=== PATIENT | male | born 1960 | race African-American/Black ===

== ENCOUNTER 2016-09-04 08:02 | Emergency (ER) | payer OTHER ==
[2016-09-04 08:14] VITALS: BP 116/65; PULSE 78; TEMP 98; BMI 41.5
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
== END 2016-09-04 08:44 | disposition home or self-care (01) ==
LOC: JERFT 08:02
DX: J00 Acute nasopharyngitis [common cold] (principal); I10 Essential (primary) hypertension
CPT/HCPCS: 99281-25

== ENCOUNTER 2017-03-12 07:53 | Emergency (ER) | payer OTHER ==
[2017-03-12 08:00] VITALS: BP 115/80; PULSE 77; TEMP 97.6; BMI 42.3
[2017-03-12] MEDS ORDERED: KETOROLAC TROMETHAMINE 60 MG/2 ML VIAL IM ONE (08:23)
[2017-03-12] MEDS ORDERED: KETOROLAC TROMETHAMINE 60 MG/2 ML VIAL ONE (08:27)
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
== END 2017-03-12 10:04 | disposition home or self-care (01) ==
LOC: JERFT 07:53
PROC: 3E0233Z Introduction of Anti-inflammatory into Muscle, Percutaneous Approach (ICD-10-PCS; principal; 2017-03-12)
DX: S13.4XXA Sprain of ligaments of cervical spine, initial encounter (principal); V43.52XA Car driver injured in collision with other type car in traffic accident, initial encounter; Y92.414 Local residential or business street as the place of occurrence of the external cause; Y93.89 Activity, other specified; I10 Essential (primary) hypertension; E07.9 Disorder of thyroid, unspecified
CPT/HCPCS: 72050-TC; 99281-25

== ENCOUNTER 2017-09-23 07:51 | Day surgery (SDC) | payer OTHER ==
[2017-09-19 15:05] VITALS: BMI 42.4
[2017-09-23 08:28] LABS: EOS % 2.3 % (0-4.5); HEMOGLOBIN 14.8 GM/dL (11.7-16.9); LYMPH % 27.7 % (8-40); MCH 29.1 pg (25.7-33.7); MCHC 33.6 g/dl (32.0-35.9); MEAN CELL VOLUME 86.5 fl (80-96); MEAN PLT VOLUME 7.2 fl (7.5-11.1); MONO % 6.5 % (3.8-10.2); NEUT % 62.5 % (42.8-82.8); PLATELET COUNT 312 K/MM3 (134-434); RBC 5.08 M/mm3 (4.00-5.60); RDW 13.8 % (11.9-15.9); WHITE BLOOD COUNT 9.2 K/mm3 (4.0-10.0)
[2017-09-23 08:37] LABS: INR 1.12 (0.82-1.09); PROTHROMBIN TIME (PATIENT) 12.7 SEC (9.98-11.88)
[2017-09-23 09:08] VITALS: TEMP 98.2
[2017-09-23] MEDS ORDERED: ACETAMINOPHEN 325 MG TABLET (FP) ONE (12:27)
[2017-09-23 15:34] VITALS: BP 116/68; PULSE 73
== END 2017-09-23 15:40 | disposition home or self-care (01) ==
LOC: JRADIR 07:51
PROVIDERS: ATTEND Radiology Diagnostic Radiology
PROC: 00JU3ZZ Inspection of Spinal Canal, Percutaneous Approach (ICD-10-PCS; principal; 2017-09-23)
DX: M54.2 Cervicalgia (principal); R51 Headache
CPT/HCPCS: 36415; 72125-TC; 72240-TC-FY; 76000-TC-FY; 85025; 85610

== ENCOUNTER 2017-09-29 07:51 | Emergency (ER) | payer OTHER ==
[2017-09-29 08:05] VITALS: BMI 42.5
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
[2017-09-29] MEDS ORDERED: IBUPROFEN 400 MG TABLET (FP) PO ONE ×2 (09:57→10:05)
--- NOTE | 2017-09-29 10:10 | PN ---
Progress Note (short form) - Note Progress Note: Called to evaluate and do an epidural blood patch on this 56 y/o male who had a myelogram on 09/23/17. Pt. developed a headache after the myelogram which has not resolved. Headache is c/w a post dural puncture headache with a strong postural component. VSS. Informed consent was obtained and witnessed. An epidural blood patch was performed under sterile technique with 25cc of blood injected at L3-4 level. Pt. tolerated the procedure well and was advised bed rest for at least a half hour. Please reconsult if needed.
[2017-09-29 10:59] VITALS: BP 124/52; PULSE 62; TEMP 98.6
[2017-09-29 10:59] LABS: BASO % 1.1 % (0-2.0); EOS % 2.1 % (0-4.5); HEMATOCRIT 42.1 % (35.4-49); HEMOGLOBIN 13.9 GM/dL (11.7-16.9); LYMPH % 34.1 % (8-40); MCH 28.7 pg (25.7-33.7); MEAN CELL VOLUME 86.8 fl (80-96); MEAN PLT VOLUME 7.2 fl (7.5-11.1); MONO % 7.7 % (3.8-10.2); PLATELET COUNT 321 K/MM3 (134-434); RBC 4.85 M/mm3 (4.00-5.60); WHITE BLOOD COUNT 8.7 K/mm3 (4.0-10.0)
[2017-09-29 11:23] LABS: ALBUMIN 3.7 g/dl (3.4-5.0); ALK PHOS 93 U/L (45-117); ANION GAP 5 (8-16); BILIRUBIN,TOTAL 0.3 mg/dL (0.2-1.0); BLOOD UREA NITROGEN 14 mg/dL (7-18); CALCIUM 8.3 mg/dL (8.5-10.1); CHLORIDE 107 mmol/L (98-107); CO2 28 mmol/L (21-32); CREATININE 0.9 mg/dL (0.7-1.3); GLUCOSE,RANDOM 121 mg/dL (74-106); POTASSIUM 3.6 mmol/L (3.5-5.1); SGOT/AST 11 U/L (15-37); SGPT/ALT 19 U/L (12-78); SODIUM 140 mmol/L (136-145); TOT PROT 7.3 g/dl (6.4-8.2)
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
== END 2017-09-29 12:18 | disposition home or self-care (01) ==
LOC: JER 07:51
PROC: 3E0S3GC Introduction of Other Therapeutic Substance into Epidural Space, Percutaneous Approach (ICD-10-PCS; principal; 2017-09-29)
DX: G97.1 Other reaction to spinal and lumbar puncture (principal); R51 Headache; Z87.39 Personal history of other diseases of the musculoskeletal system and connective tissue
CPT/HCPCS: 36415; 80053; 85025; 99283-25

== ENCOUNTER 2017-12-12 10:00 | Day surgery (SDC) | payer OTHER ==
[2017-12-11 08:53] VITALS: BMI 46.3
[2017-12-12] MEDS ORDERED: PROPOFOL 20 ML ONE ×2 (10:40)
[2017-12-12] MEDS ORDERED: LIDOCAINE HCL/PF 2% SDV 5ML VIAL ONE (10:40)
[2017-12-12 11:49] VITALS: TEMP 98
[2017-12-12 13:44] VITALS: BP 122/65; PULSE 60
--- NOTE | 2017-12-15 11:13 | PATH ---
Surgical Pathology Report Patient Name: PETER LOO [facility]. Rec. #: [id number] /Age/Gender: 1960 (Age: 57) / M Account: [id number] Location: U-ENDOSCOPY Taken: 12/12/2017 Received: 12/12/2017 Reported: 12/15/2017 Physicians: Rob Garcia M.D. Specimen(s) Received A: BX RECTAL POLYPS B: BX ILEOCECAL VALVE C: POLYP SIGMOID Clinical History Colon cancer screening Postoperative diagnosis: Polyps, diverticulosis Final Diagnosis A. RECTAL POLYPS, BIOPSY: HYPERPLASTIC POLYP, FRAGMENTS. B. ILEOCECAL VALVE, BIOPSY: TUBULAR ADENOMA. C. SIGMOID POLYP, POLYPECTOMY: HYPERPLASTIC POLYP. Electronically Signed Reema Toney M.D. Gross Description A. Received in formalin, labeled "biopsy rectal polyps" are 5 alonso, irregular portions of soft tissue ranging from 0.2-0.3 cm. in greatest dimension. The specimens are submitted in toto in one cassette. B. Received in formalin, labeled "biopsy ileocecal valve" are 2 alonso, irregular portions of soft tissue measuring 0.2 and 0.3 cm. in greatest dimension. The specimens are submitted in toto in one cassette. C. Received in formalin, labeled "biopsy sigmoid polyp" is a alonso, irregular portion of soft tissue measuring 0.5 cm. in greatest dimension. The specimen is submitted in toto in one cassette. 12/12/201712/12/2017
== END 2017-12-12 12:35 | disposition home or self-care (01) ==
LOC: JASU-ENDO 10:00
PROVIDERS: ATTEND Internal Medicine Gastroenterology
PROC: 0DBN8ZX Excision of Sigmoid Colon, Via Natural or Artificial Opening Endoscopic, Diagnostic (ICD-10-PCS; 2017-12-12)
PROC: 0DBP8ZX Excision of Rectum, Via Natural or Artificial Opening Endoscopic, Diagnostic (ICD-10-PCS; 2017-12-12)
PROC: 0DBC8ZX Excision of Ileocecal Valve, Via Natural or Artificial Opening Endoscopic, Diagnostic (ICD-10-PCS; principal; 2017-12-12 11:00)
DX: Z12.11 Encounter for screening for malignant neoplasm of colon (principal); K62.1 Rectal polyp; D12.5 Benign neoplasm of sigmoid colon; K64.8 Other hemorrhoids; K57.30 Diverticulosis of large intestine without perforation or abscess without bleeding; K63.89 Other specified diseases of intestine
CPT/HCPCS: 88305-TC

== ENCOUNTER 2021-04-13 04:43 | Day surgery (SDC) | payer OTHER ==
[2021-04-13 11:12] VITALS: BMI 47.6
[2021-04-13 13:20] VITALS: TEMP 97.1
[2021-04-13 13:46] VITALS: BP 119/54; PULSE 57
== END 2021-04-13 13:20 | disposition home or self-care (01) ==
LOC: JASU-ENDO 04:43
PROVIDERS: ATTEND Internal Medicine Gastroenterology
PROC: 0DBL8ZX Excision of Transverse Colon, Via Natural or Artificial Opening Endoscopic, Diagnostic (ICD-10-PCS; 2021-04-13)
PROC: 0DBP8ZX Excision of Rectum, Via Natural or Artificial Opening Endoscopic, Diagnostic (ICD-10-PCS; 2021-04-13)
PROC: 0DBM8ZX Excision of Descending Colon, Via Natural or Artificial Opening Endoscopic, Diagnostic (ICD-10-PCS; principal; 2021-04-13 11:00)
DX: Z12.11 Encounter for screening for malignant neoplasm of colon (principal); D12.3 Benign neoplasm of transverse colon; D12.8 Benign neoplasm of rectum; K63.5 Polyp of colon; K57.30 Diverticulosis of large intestine without perforation or abscess without bleeding; K64.8 Other hemorrhoids; Z86.010 Personal history of colon polyps; I10 Essential (primary) hypertension